=== PATIENT | female | born 1995 | race Hispanic/Latino ===

== ENCOUNTER 2019-05-26 11:45 | Emergency (ER) | payer OTHER, MEDICAID ==
[2019-05-26] MEDS ORDERED: ACETAMINOPHEN EXTRA STRENGTH 500 MG TABLET ONE (12:31)
== END 2019-05-26 13:09 | disposition home or self-care (01) ==
LOC: EDH 11:45
DX: O26.891 Other specified pregnancy related conditions, first trimester (principal); R07.89 Other chest pain; I10 Essential (primary) hypertension; Z90.49 Acquired absence of other specified parts of digestive tract; Z3A.10 10 weeks gestation of pregnancy
CPT/HCPCS: 93005

== ENCOUNTER 2019-12-14 11:53 | Inpatient (IN) | payer OTHER, MEDICAID ==
[~2019-12-14] VITALS: Ht 154.9 cm; Wt 95.7 kg
[2019-12-14] MEDS ORDERED: CEFAZOLIN SODIUM 1 GM VIAL IVP PRN (13:30)
[2019-12-14] MEDS ORDERED: LACTATED RINGERS 1000ML 1,000 ML IV SCH (13:30)
[2019-12-14] MEDS ORDERED: CALDOLOR 800MG+NS 250ML 250 ML IV PRN (13:30)
[2019-12-14] MEDS ORDERED: CEFAZOLIN SODIUM 1 GM VIAL ONE (13:34)
[2019-12-14] MEDS ORDERED: CALDOLOR 800MG+NS 250ML 250 ML IV ONE (13:34)
[2019-12-14] MEDS ORDERED: DURAMORPH PF1 MG/ML 10ML AMP IV ONE (13:45)
[2019-12-14] MEDS ORDERED: OXYTOCIN 10 USP UNITS/ML ONE ×2 (13:45→14:22)
[2019-12-14 13:50] LABS: HEMATOCRIT 31.8 % (36-48); MEAN CORPUSCULAR HEMOGLOBIN 24.1 pg (27.0-33.0); MEAN CORPUSCULAR HGB CONC 31.1 g/dL (32.0-36.0); MEAN CORPUSCULAR VOLUME 77.4 fL (79-99); PLATELET COUNT (AUTO) 362 K/uL (130-400); RED BLOOD CELL COUNT(AUTO) 4.11 MIL/uL (4.00-5.50); RED CELL DISTRIBUTION WIDTH 16.1 % (11.0-15.5); WHITE BLOOD COUNT (AUTO) 12.6 K/uL (4.8-10.8)
[2019-12-14] MEDS ORDERED: CITRIC ACID/SODIUM CITRATE 30 ML UDCUP ONE (13:52)
[2019-12-14] MEDS ORDERED: METOCLOPRAMIDE 10 MG/2 ML VIAL ONE (13:52)
[2019-12-14] MEDS ORDERED: FAMOTIDINE/PF 20 MG/2 ML VIAL IV ONE (13:54)
[2019-12-14] MEDS ORDERED: CEFAZOLIN SODIUM 1 GM VIAL IVP ONE (14:00)
[2019-12-14] MEDS ORDERED: ACETAMINOPHEN EXTRA STRENGTH 500 MG TABLET PO PRN (15:00)
[2019-12-14] MEDS ORDERED: PROMETHAZINE HCL 25 MG/ML 1ML AMPULE IM PRN (15:00)
[2019-12-14] MEDS ORDERED: BISACODYL 10 MG SUPP.RECT RC PRN (15:00)
[2019-12-14] MEDS ORDERED: DIPH,PERTUSS(ACELL),TET VAC/PF 0.5 ML VIAL IM SCH (15:00)
[2019-12-14] MEDS ORDERED: LANOLIN 30GM OINTMENT TP PRN (15:00)
[2019-12-14] MEDS ORDERED: OXYTOCIN-LR 20 UNITS/1000 ML 1,000 ML IV PRN (15:00)
[2019-12-14] MEDS ORDERED: DEXTROSE 5 %-0.45 % NACL 1,000 ML IV PRN (15:00)
[2019-12-14] MEDS ORDERED: MEASLES/MUMPS/RUBELLA VACCINE, LIVE 0.5 ML/VIAL SQ SCH (15:00)
[2019-12-14] MEDS ORDERED: DIPHENHYDRAMINE HCL 25 MG CAPSULE PO PRN (15:00)
[2019-12-14] MEDS ORDERED: ACETAMINOPHEN-CODEINE 300/30MG TAB PO PRN (15:00)
[2019-12-14] MEDS ORDERED: HYDROCODONE/ACETAMINOPHEN 5/325 MG TAB PO PRN (15:00)
[2019-12-14] MEDS ORDERED: MEPERIDINE-PF 75 MG/ML SYG IM PRN (15:00)
[2019-12-14] MEDS ORDERED: SODIUM CHLORIDE 0.9% 10 ML VIAL IVP PRN (15:00)
[2019-12-14 16:42] VITALS: BP 141/67
[2019-12-14] MEDS ORDERED: PNV1TABL17 PO (18:49)
[2019-12-14] MEDS ORDERED: DiphenhydrAMINE HCL 50 MG/ML VIAL IVP PRN (19:15)
[2019-12-14] MEDS ORDERED: ONDANSETRON HCL 4 MG/2 ML VIAL IVP PRN (19:15)
[2019-12-14] MEDS ORDERED: NALOXONE HCL 0.4 MG/1 ML ML IVP PRN ×2 (19:15)
[2019-12-14] MEDS ORDERED: EPHEDRINE SULFATE 50 MG/ML AMPULE IVP PRN (19:15)
[2019-12-14 19:35] VITALS: BP 149/79
[2019-12-14] MEDS: SIMETHICONE 80 MG TAB.CHEW PO PRN (22:00)
[2019-12-14] MEDS: DOCUSATE SODIUM 100 MG CAP PO SCH (22:00)
[2019-12-14] MEDS: CALDOLOR 800MG+NS 250ML 250 ML IV SCH (22:57)
[2019-12-14] MEDS: IBUPROFEN 800 MG TAB PO SCH (23:00)
[2019-12-15 00:25] VITALS: BP 138/84
[2019-12-15 04:21] VITALS: BP 120/69
[2019-12-15 06:11] LABS: HEPATITIS Bs ANTIGEN SCREEN P Negative (Negative)
[2019-12-15 06:34] LABS: HEMATOCRIT 26.7 % (36-48); MEAN CORPUSCULAR HGB CONC 31.1 g/dL (32.0-36.0); MEAN CORPUSCULAR VOLUME 77.2 fL (79-99); RED BLOOD CELL COUNT(AUTO) 3.46 MIL/uL (4.00-5.50); RED CELL DISTRIBUTION WIDTH 16.3 % (11.0-15.5); WHITE BLOOD COUNT (AUTO) 12.3 K/uL (4.8-10.8)
--- NOTE | 2019-12-15 06:50 | NUR ---
Ursula; Ursula care done, clean and dry. Abdominal binder applied, Oliver Catheter taken out patient tolerated it well. Advice to call for help if needed. Patient assisted to get up from bed and sit at bedside chair.
[2019-12-15] MEDS: CALDOLOR 800MG+NS 250ML 250 ML IV SCH (06:53)
[2019-12-15] MEDS: IBUPROFEN 800 MG TAB PO SCH (07:00)
[2019-12-15 07:37] VITALS: BP 128/77
[2019-12-15] MEDS ORDERED: LIDOCAINE 5% TOPICAL PATCH TP SCH (09:00)
[2019-12-15] MEDS: DOCUSATE SODIUM 100 MG CAP PO SCH (09:32)
[2019-12-15] MEDS: SIMETHICONE 80 MG TAB.CHEW PO PRN (09:32)
[2019-12-15 11:55] VITALS: BP 125/89
--- NOTE | 2019-12-15 15:35 | NUR ---
PATIENT LEFT UNIT VIA WHEELCHAIR WITH BABY IN ARMS. PERSONAL VEHICLE USED FOR TRANSPORTATION ACCOMPANIED BY FAMILY. BABY SECURE IN CARSEAT. NO COMPLAINTS OR CONCERNS ADDRESSED FROM PATIENT ON DISCHARGE.
== END 2019-12-15 15:35 | disposition home or self-care (01) | DRG 788 ==
LOC: LDH 11:53 → WSH 16:30 → PREOBSVTOIN 12-17 11:51
PROVIDERS: ADMIT Obstetrics & Gynecology; ATTEND Obstetrics & Gynecology
PROC: 3E0234Z Introduction of Serum, Toxoid and Vaccine into Muscle, Percutaneous Approach (ICD-10-PCS; 2019-12-14)
PROC: 3E0134Z Introduction of Serum, Toxoid and Vaccine into Subcutaneous Tissue, Percutaneous Approach (ICD-10-PCS; 2019-12-14)
PROC: 10D00Z1 Extraction of Products of Conception, Low, Open Approach (ICD-10-PCS; principal; 2019-12-14 14:00)
DX: O76 Abnormality in fetal heart rate and rhythm complicating labor and delivery (principal); Z37.0 Single live birth; O69.82X0 Labor and delivery complicated by other cord entanglement, without compression, not applicable or unspecified; O99.214 Obesity complicating childbirth; E66.9 Obesity, unspecified; O62.2 Other uterine inertia; Z3A.39 39 weeks gestation of pregnancy; Z23 Encounter for immunization
CPT/HCPCS: 36415; 59510; 85027; 86592; 86850; 86900; 86901; 87340; A4344; G0378; J0690; J1741; J2274; J2405; J2590; J2765; J3490; J7120

== ENCOUNTER 2024-01-25 07:38 | Emergency (ER) | payer BC, MEDICAID ==
[~2024-01-25] VITALS: Ht 152.4 cm; Wt 90.7 kg
[2024-01-25 07:59] LABS: BASOPHILS # (AUTO) 0.07 K/uL (0.00-0.20); BASOPHILS % (AUTO) 0.9 % (0.0-5.0); EOSINOPHILS # (AUTO) 0.19 K/uL (0.00-0.70); EOSINOPHILS % (AUTO) 2.5 % (0.0-8.0); HEMATOCRIT 34.8 % (36-48); IMMATURE GRANULOCYTE ABSOLUTE 0.04 K/uL (0-1); LYMPHOCYTES # (AUTO) 1.6 K/uL (1.0-4.8); LYMPHOCYTES % (AUTO) 20.5 % (21.0-51.0); MEAN CORPUSCULAR HEMOGLOBIN 22.4 pg (27.0-33.0); MEAN CORPUSCULAR HGB CONC 31.6 g/dL (32.0-36.0); MEAN CORPUSCULAR VOLUME 70.7 fL (79-99); MONOCYTES # (AUTO) 0.7 K/uL (0.1-1.0); MONOCYTES % (AUTO) 8.6 % (3.0-13.0); NEUTROPHILS # (AUTO) 5.1 K/uL (1.8-7.7); PLATELET COUNT (AUTO) 250 K/uL (130-400); RED BLOOD CELL COUNT(AUTO) 4.92 MIL/uL (4.00-5.50); RED CELL DISTRIBUTION WIDTH 20.1 % (11.0-15.5); WHITE BLOOD COUNT (AUTO) 7.7 K/uL (4.8-10.8)
[2024-01-25 08:18] LABS: CREATININE 0.7 mg/dL (0.5-1.0); POTASSIUM 3.2 mmol/L (3.5-5.1)
[2024-01-25 08:23] LABS: ALBUMIN 3.9 g/dL (3.5-5.0); BILIRUBIN,TOTAL 0.9 mg/dL (0.2-1.0); MAGNESIUM 1.9 mg/dL (1.80-2.40); TOTAL PROTEIN, SERUM 7.6 g/dL (6.0-8.3)
[2024-01-25] MEDS: KCL 20 MEQ ERTAB PO ONE (08:41)
[2024-01-25] MEDS: ASPIRIN 325MG TAB PO ONE (08:42)
[2024-01-25] MEDS: ASPIRIN 325MG TAB ONE (08:45)
[2024-01-25] MEDS: LABETALOL 20MG SYG IV ONE ×2 (08:45)
[2024-01-25] MEDS: AMLODIPINE 5 MG TAB PO ONE (08:52)
[2024-01-25 09:14] LABS: ADD UA MICROSCOPIC YES; APPEARANCE,URINE CLOUDY (CLEAR); BILIRUBIN,URINE NEGATIVE (NEGATIVE); COLOR,URINE DARK-YELLOW (YELLOW); GLUCOSE, URINE (UA) NEGATIVE (NEGATIVE); KETONES,URINE 5 mg/dL (NEGATIVE); LEUKOCYTE ESTERASE ,URINE NEGATIVE Leu/uL (NEGATIVE); NITRATE,URINE NEGATIVE (NEGATIVE); OCCULT BLOOD,URINE LARGE (NEGATIVE); PH,URINE 6.5 (5.0-8.0); PROTEIN,URINE 30 mg/dL (NEGATIVE); UROBILINOGEN,URINE 0.2 mg/dL (0.2-1.0)
[2024-01-25 09:23] LABS: BACTERIA,URINE FEW /HPF (None Seen); MUCUS,URINE RARE LPF (None Seen); SQUAMOUS EPITHELIAL CELL,UR MANY /HPF (0-2)
[2024-01-25] MEDS ORDERED: IOHEXOL 350 MG/ML 100ML INFUS..BTL IV ONE (09:51)
[2024-01-25 11:01] VITALS: BP 134/80; PULSE 88; RESP 17; O2SAT 98
== END 2024-01-25 11:26 | disposition home or self-care (01) ==
LOC: EDH 07:38
DX: R07.89 Other chest pain (principal); I10 Essential (primary) hypertension; E66.9 Obesity, unspecified; Z68.39 Body mass index [BMI] 39.0-39.9, adult
CPT/HCPCS: 99284; 71270; 71045; 83735; 84484; 80053; 85025; 85378; 81001; 81025; 36415; 93005; Q9967